=== PATIENT | male | born 1960 | race American Indian/Alaskan Native ===

== ENCOUNTER 2018-11-24 21:28 | Emergency (ER) | payer BC, OTHER ==
[2018-11-24] MEDS ORDERED: Sodium Chloride 0.9% 10 ML Syringe FLUSH PRN (21:53)
[2018-11-24] MEDS ORDERED: Sodium Chloride 0.9% 2.5 ML Syringe FLUSH PRN (21:53)
[2018-11-24] MEDS ORDERED: Ketorolac 30 MG/ML SDV IVPUSH ONE (21:54)
[2018-11-24] MEDS ORDERED: Pantoprazole 40 MG Vial IVPUSH ONE (21:54)
[2018-11-24] MEDS ORDERED: Sodium Chloride 0.9% 1,000 ML IV ONE (21:54)
[2018-11-24] MEDS ORDERED: Morphine 2 MG/ML Syringe IVPUSH ONE (21:54)
[2018-11-24] MEDS ORDERED: Ondansetron 4 MG/2 ML SDV IVPUSH ONE (21:54)
--- NOTE | 2018-11-24 21:58 | EDM.PDOC ---
ED HPI GENERAL MEDICAL PROBLEM - General Chief Complaint: Back Pain or Injury Stated Complaint: VOMITING AND DIARRHEA Time Seen by Provider: 11/24/18 21:52 - History of Present Illness INITIAL COMMENTS - FREE TEXT/NARRATIVE: HISTORY AND PHYSICAL: History of present illness: The patient is a 58-year-old male who presents with complaints of onset of watery diarrhea multiple times, greater than 10 episodes of small stools, with the stools mixed with blood occasionally and dry heaves. The patient said he went to see his provider at [facility] earlier today for back pain and was given medications and was feeling fine and then at 2:00 he started having his symptoms. He says that he gets gurgling in his stomach he has to go to the bathroom he has a small watery stool and then has dry heaves area he says he has not been able to tolerate any sips of water or food today. He's had no fevers chills or upper respiratory symptoms no flank pain and no urinary symptoms. The patient says that he has had heartburn for the last 1 week and he has been using Tums but he has no epigastric pain. The patient has no GI history and has no history of food intolerances. He's had no abdominal surgical history except a prostatectomy done with the robot and he says that his prostate cancer is in remission. The patient says he is thirsty but he cannot tolerate anything. He's had no new foods other than eating at a [employer] several days ago and no exotic travel. The patient tells me he gets diffuse abdominal pain before his diarrhea and it does not localize right or left. Review of systems: As per history of present illness and below otherwise all systems reviewed and negative. Past medical history: As per history of present illness and as reviewed below otherwise noncontributory. Surgical history: As per history of present illness and as reviewed below otherwise noncontributory. Social history: No reported history of drug or alcohol abuse. Family history: As per history of present illness and as reviewed below otherwise noncontributory. Physical exam: General: Well-developed well-nourished overweight man who is nontoxic and vital signs are noted by me HEENT: Atraumatic, normocephalic, negative for conjunctival pallor or scleral icterus, mucous membranes tacky throat clear, neck supple, nontender, trachea midline. Lungs: Clear to auscultation, breath sounds equal bilaterally, chest nontender. Heart: S1S2, regular rate and rhythm no overt murmurs Abdomen: Soft, nondistended, nontender. Bowel sounds are slightly hyperactive and there is no tympany rebound or guarding on percussion. On palpation I cannot reproduce the pain but he does say that there is a slight diffuse tenderness all over when I palpate. Negative for masses or hepatosplenomegaly. Negative for costovertebral tenderness. Pelvis: Stable nontender. Genitourinary: Deferred. Rectal: Deferred. Extremities: Atraumatic, negative for cords or calf pain. Neurovascular unremarkable. Neuro: Awake, alert, oriented. Cranial nerves II through XII unremarkable. Cerebellum unremarkable. Motor and sensory unremarkable throughout. Exam nonfocal. Diagnostics: CBC CMP amylase lipase EKG INR lactic acid stool for culture H pylori Therapeutics: IV fluids Toradol Zofran morphine Protonix He is feeling much improved here and has not produced any stool so I will cancel that order. I will send him home on clear liquid diet bland food Bentyl and Zofran Impression: Vomiting and diarrhea Definitive disposition and diagnosis as appropriate pending reevaluation and review of above. right upper back Pain Score (Numeric/FACES): 8 - Related Data Allergies Allergy/AdvReac Type Severity Reaction Status Date / Time Penicillins Allergy unknown Verified 11/24/18 21:45 Home Meds: Home Meds Lisinopril 1 tab PO DAILY 06/18/16 [History] Past Medical History HEENT History: Reports: None Cardiovascular History: Reports: Hypertension Respiratory History: Reports: None Gastrointestinal History: Reports: None Psychiatric History: Reports: None Endocrine/Metabolic History: Reports: None Oncologic (Cancer) History: Reports: Prostate - Infectious Disease History Infectious Disease History: Reports: None - Past Surgical History Male Surgical History: Reports: Prostatectomy Social & Family History - Family History Family Medical History: Noncontributory ED ROS GENERAL - Review of Systems Review Of Systems: ROS reveals no pertinent complaints other than HPI. ED EXAM, GENERAL - Physical Exam Exam: See Below (See dictation) Course - Vital Signs Last Recorded V/S: Last Vital Signs Temp 36.6 C 11/24/18 21:30 Pulse 60 11/24/18 21:30 Resp 18 11/24/18 21:30 BP 122/77 11/24/18 21:30 Pulse Ox 96 11/24/18 21:30 - Orders/Labs/Meds Orders: Active Orders 24 hr Category Date Time Status EKG Documentation Completion [RC] STAT Care 11/24/18 21:53 Active CULTURE STOOL + CAMPY+SHIGATOX [RM] Stat Lab 11/24/18 21:54 Ordered Sodium Chloride 0.9% [Saline Flush] Med 11/24/18 21:53 Active 10 ml FLUSH ASDIRECTED PRN Sodium Chloride 0.9% [Saline Flush] Med 11/24/18 21:53 Active 2.5 ml FLUSH ASDIRECTED PRN Saline Lock Insert [OM.PC] Stat Oth 11/24/18 21:53 Ordered Medication Orders Sodium Chloride (Saline Flush) 10 ml FLUSH ASDIRECTED PRN PRN Reason: Keep Vein Open Sodium Chloride (Saline Flush) 2.5 ml FLUSH ASDIRECTED PRN PRN Reason: Keep Vein Open Labs: Laboratory Tests 11/24/18 11/24/18 11/24/18 Range/Units 22:20 22:20 22:20 WBC 13.01 H (4.0-11.0) K/uL RBC 5.00 (4.50-5.90) M/uL Hgb 15.9 (13.0-17.0) g/dL Hct 45.9 (38.0-50.0) % MCV 91.8 (80.0-98.0) fL MCH 31.8 (27.0-32.0) pg MCHC 34.6 (31.0-37.0) g/dL RDW Std Deviation 43.2 (28.0-62.0) fl RDW Coeff of Konrad 13 (11.0-15.0) % Plt Count 233 (150-400) K/uL MPV 10.40 (7.40-12.00) fL Neut % (Auto) 88.2 H (48.0-80.0) % Lymph % (Auto) 6.3 L (16.0-40.0) % Bates % (Auto) 5.2 (0.0-15.0) % Eos % (Auto) 0.2 (0.0-7.0) % Baso % (Auto) 0.1 (0.0-1.5) % Neut # (Auto) 11.5 H (1.4-5.7) K/uL Lymph # (Auto) 0.8 (0.6-2.4) K/uL Bates # (Auto) 0.7 (0.0-0.8) K/uL Eos # (Auto) 0.0 (0.0-0.7) K/uL Baso # (Auto) 0.0 (0.0-0.1) K/uL Nucleated RBC % 0.0 /100WBC Nucleated RBCs # 0 K/uL INR 1.05 Lactate 1.6 (0.20-2.00) mmol/L Sodium (136-148) mmol/L Potassium (3.5-5.1) mmol/L Chloride (98-107) mmol/L Carbon Dioxide (21.0-32.0) mmol/L BUN (7.0-18.0) mg/dL Creatinine (0.8-1.3) mg/dL Est Cr Clr Drug Dosing mL/min Estimated GFR (MDRD) ml/min Glucose (74-106) mg/dL Calcium (8.5-10.1) mg/dL Total Bilirubin (0.2-1.0) mg/dL AST (15-37) IU/L ALT (14-63) IU/L Alkaline Phosphatase (46-116) U/L Total Protein (6.4-8.2) g/dL Albumin (3.4-5.0) g/dL Globulin (2.6-4.0) g/dL Albumin/Globulin Ratio (0.9-1.6) Amylase (25-115) U/L Lipase (73-393) U/L H. pylori IgG Antibody (NEG) 11/24/18 11/24/18 Range/Units 22:20 22:20 WBC (4.0-11.0) K/uL RBC (4.50-5.90) M/uL Hgb (13.0-17.0) g/dL Hct (38.0-50.0) % MCV (80.0-98.0) fL MCH (27.0-32.0) pg MCHC (31.0-37.0) g/dL RDW Std Deviation (28.0-62.0) fl RDW Coeff of Konrad (11.0-15.0) % Plt Count (150-400) K/uL MPV (7.40-12.00) fL Neut % (Auto) (48.0-80.0) % Lymph % (Auto) (16.0-40.0) % Bates % (Auto) (0.0-15.0) % Eos % (Auto) (0.0-7.0) % Baso % (Auto) (0.0-1.5) % Neut # (Auto) (1.4-5.7) K/uL Lymph # (Auto) (0.6-2.4) K/uL Bates # (Auto) (0.0-0.8) K/uL Eos # (Auto) (0.0-0.7) K/uL Baso # (Auto) (0.0-0.1) K/uL Nucleated RBC % /100WBC Nucleated RBCs # K/uL INR Lactate (0.20-2.00) mmol/L Sodium 136 (136-148) mmol/L Potassium 4.3 (3.5-5.1) mmol/L Chloride 103 (98-107) mmol/L Carbon Dioxide 23.8 (21.0-32.0) mmol/L BUN 20 H (7.0-18.0) mg/dL Creatinine 1.0 (0.8-1.3) mg/dL Est Cr Clr Drug Dosing 70.90 mL/min Estimated GFR (MDRD) > 60.0 ml/min Glucose 167 H (74-106) mg/dL Calcium 9.1 (8.5-10.1) mg/dL Total Bilirubin 0.3 (0.2-1.0) mg/dL AST 13 L (15-37) IU/L ALT 27 (14-63) IU/L Alkaline Phosphatase 78 (46-116) U/L Total Protein 7.8 (6.4-8.2) g/dL Albumin 3.7 (3.4-5.0) g/dL Globulin 4.1 H (2.6-4.0) g/dL Albumin/Globulin Ratio 0.9 (0.9-1.6) Amylase 44 (25-115) U/L Lipase 99 (73-393) U/L H. pylori IgG Antibody NEGATIVE (NEG) Meds: Medications Generic Name Dose Route Start Last Admin Trade Name Praveen PRN Reason Stop Dose Admin Sodium Chloride 10 ml 11/24/18 21:53 Saline Flush FLUSH ASDIRECTED PRN Keep Vein Open Sodium Chloride 2.5 ml 11/24/18 21:53 Saline Flush FLUSH ASDIRECTED PRN Keep Vein Open Discontinued Medications Generic Name Dose Route Start Last Admin Trade Name Praveen PRN Reason Stop Dose Admin Sodium Chloride 1,000 mls @ 999 mls/hr 11/24/18 21:54 11/24/18 22:24 Normal Saline IV 11/24/18 22:54 999 mls/hr STAT ONE Administration Ketorolac Tromethamine 30 mg 11/24/18 21:54 11/24/18 22:24 Toradol IVPUSH 11/24/18 21:55 30 mg ONETIME ONE Administration Morphine Sulfate 4 mg 11/24/18 21:54 11/24/18 22:24 Morphine IVPUSH 11/24/18 21:55 4 mg ONETIME ONE Administration Morphine Sulfate Confirm 11/24/18 22:26 11/24/18 22:31 Morphine Administered 11/24/18 22:27 Not Given Dose 2 mg .ROUTE .STK-MED ONE Ondansetron HCl 4 mg 11/24/18 21:54 11/24/18 22:24 Zofran IVPUSH 11/24/18 21:55 4 mg ONETIME ONE Administration Pantoprazole Sodium 80 mg 11/24/18 21:54 11/24/18 22:25 Protonix Iv IVPUSH 11/24/18 21:55 80 mg .BOLUS ONE Administration Departure - Departure Time of Disposition: 23:52 Disposition: Home, Self-Care 01 Condition: Good Clinical Impression: Vomiting and diarrhea - Discharge Information Referrals: PCP,None [Primary Care Provider] - Forms: ED Department Discharge Additional Instructions: The following information is given to patients seen in the emergency department who are being discharged to home. This information is to outline your options for follow-up care. We provide all patients seen in our emergency department with a follow-up referral. The need for follow-up, as well as the timing and circumstances, are variable depending upon the specifics of your emergency department visit. If you don't have a primary care physician on staff, we will provide you with a referral. We always advise you to contact your personal physician following an emergency department visit to inform them of the circumstance of the visit and for follow-up with them and/or the need for any referrals to a consulting specialist. The emergency department will also refer you to a specialist when appropriate. This referral assures that you have the opportunity for followup care with a specialist. All of these measure are taken in an effort to provide you with optimal care, which includes your followup. Under all circumstances we always encourage you to contact your private physician who remains a resource for coordinating your care. When calling for followup care, please make the office aware that this follow-up is from your recent emergency room visit. If for any reason you are refused follow-up, please contact the [facility] emergency department at and ask to speak to the emergency department charge nurse. [facility] Primary care- Internal Medicine and Family [address] [address] Please call and follow-up with your provider in your clinic one of ours for reevaluation and further care. Push sips of clear liquids and bland foods. Use medications as prescribed, Zofran and Bentyl dicyclomine as needed and prescribed. Return to ER as needed and as discussed - My Orders Last 24 Hours: My Active Orders 11/24/18 21:53 EKG Documentation Completion [RC] STAT Sodium Chloride 0.9% [Saline Flush] 10 ml FLUSH ASDIRECTED PRN Sodium Chloride 0.9% [Saline Flush] 2.5 ml FLUSH ASDIRECTED PRN Saline Lock Insert [OM.PC] Stat 11/24/18 21:54 CULTURE STOOL + CAMPY+SHIGATOX [RM] Stat - Assessment/Plan Last 24 Hours: My Active Orders 11/24/18 21:53 EKG Documentation Completion [RC] STAT Sodium Chloride 0.9% [Saline Flush] 10 ml FLUSH ASDIRECTED PRN Sodium Chloride 0.9% [Saline Flush] 2.5 ml FLUSH ASDIRECTED PRN Saline Lock Insert [OM.PC] Stat 11/24/18 21:54 CULTURE STOOL + CAMPY+SHIGATOX [RM] Stat
[2018-11-24] MEDS ORDERED: Morphine 2 MG/ML Syringe ONE (22:26)
[2018-11-24 22:48] LABS: CHLORIDE,CL 103 mmol/L (98-107); SODIUM,NA 136 mmol/L (136-148)
[2018-11-24 23:57] VITALS: BP 121/71
== END 2018-11-25 00:05 | disposition home or self-care (01) ==
LOC: MW.ED 21:28
DX: R19.7 Diarrhea, unspecified (principal); R11.10 Vomiting, unspecified; M54.6 Pain in thoracic spine; I10 Essential (primary) hypertension; Z88.0 Allergy status to penicillin; Z79.899 Other long term (current) drug therapy
CPT/HCPCS: 36415; 80053; 82150; 83605; 83690; 85025; 85610; 86677; 93005; 96361; 96374; 96375; 99284; C9113; J1885; J2270; J2405; J7040

== ENCOUNTER 2020-12-30 09:38 | Day surgery (SDC) | payer BC, OTHER ==
[~2020-12-30 09:38] MED LIST: Ketamine 500 mg/10 ML MDV ONE; Lactated Ringers 1,000 ML IV SCH; Lidocaine 2% 5 ML SDV ONE; Midazolam 1 MG/ML 2 ML SDV ONE; Propofol 200 MG/20 ML SDV ONE; fentaNYL 250 MCG/5 ML SDV ONE
[2020-12-30] MEDS ORDERED: fentaNYL 100 MCG/2 ML SDV ONE (09:47)
--- NOTE | 2020-12-30 10:04 | PCM.PREANE ---
Preanesthetic Assessment - Anesthesia/Transfusion/Family Hx Anesthesia History: Prior Anesthesia Without Reaction Family History of Anesthesia Reaction: No Transfusion History: No Prior Transfusion(s) Intubation History: Unknown - Review of Systems General: No Symptoms Pulmonary: No Symptoms Cardiovascular: No Symptoms Gastrointestinal: Hematochezia Neurological: No Symptoms Other: Reports: None - Physical Assessment Vital Signs: Last Vital Signs Temp 36.8 C 12/30/20 09:56 Pulse 65 12/30/20 09:56 Resp 16 12/30/20 09:56 BP 145/77 H 12/30/20 09:56 Pulse Ox 96 12/30/20 09:56 Height: 5 ft 6 in Weight: 106.594 kg ASA Class: 2 Mental Status: Alert & Oriented x3 Airway Class: Mallampati = 2 Dentition: Reports: Dentures (upper), Partial (lower, 4 teeth left in lower jaw) Thyro-Mental Finger Breadths: 3 Mouth Opening Finger Breadths: 2 (very small mouth) ROM/Head Extension: Full Lungs: Clear to Auscultation, Normal Respiratory Effort Cardiovascular: Regular Rate, Regular Rhythm - Allergies Allergies/Adverse Reactions: Allergies Allergy/AdvReac Type Severity Reaction Status Date / Time bee venom protein (honey bee) Allergy Swelling Verified 12/28/20 10:45 Penicillins Allergy Rash Verified 12/28/20 10:45 - Blood Blood Available: No - Anesthesia Plan Pre-Op Medication Ordered: None - Acknowledgements Anesthesia Type Planned: MAC Pt an Appropriate Candidate for the Planned Anesthesia: Yes Alternatives and Risks of Anesthesia Discussed w Pt/Guardian: Yes Pt/Guardian Understands and Agrees with Anesthesia Plan: Yes PreAnesthesia Questionnaire HEENT History: Reports: Other (See Below) Other HEENT History: wears glasses, top and bottom dentures Cardiovascular History: Reports: Blood Clots/VTE/DVT, Hypertension Other Cardiovascular History: DVT left leg 9 years ago after prostate surgery Respiratory History: Reports: None Gastrointestinal History: Reports: Colon Polyp, Other (See Below) Other Gastrointestinal History: states hepatitis as a child Genitourinary History: Reports: Prostate Disorder Musculoskeletal History: Reports: Fracture Other Musculoskeletal History: hx fx wrist and ankle Neurological History: Reports: None Psychiatric History: Reports: None Endocrine/Metabolic History: Reports: Obesity/BMI 30+ (BMI 37.9) Hematologic History: Reports: None Immunologic History: Reports: None Oncologic (Cancer) History: Reports: Prostate (9 years ago) Dermatologic History: Reports: None - Infectious Disease History Infectious Disease History: Reports: None - Past Surgical History Head Surgeries/Procedures: Reports: None HEENT Surgical History: Reports: None Cardiovascular Surgical History: Reports: None Respiratory Surgical History: Reports: None GI Surgical History: Reports: Colonoscopy (9 years ago- normal) Other Female Surgeries/Procedures: robotic prostatectomy 9 years ago Male Surgical History: Reports: Prostatectomy Endocrine Surgical History: Reports: None Neurological Surgical History: Reports: None Musculoskeletal Surgical History: Reports: None Other Oncologic Surgeries/Procedures: prostatectomy Dermatological Surgical History: Reports: None - SUBSTANCE USE Tobacco Use Status *Q: Former Tobacco User Tobacco Use Within Last Twelve Months: No - HOME MEDS Home Medications: Home Meds Lansoprazole [Prevacid] 30 mg PO DAILY 12/28/20 [History] Telmisartan 40 mg PO DAILY 12/28/20 [History] - CURRENT (IN HOUSE) MEDS Current Meds: Current Medications Lactated Ringer's (Ringers, Lactated) 1,000 mls @ 125 mls/hr IV ASDIRECTED BRANDON Discontinued Medications Fentanyl (Sublimaze) Confirm Administered Dose 250 mcg .ROUTE .STK-MED ONE Stop: 12/30/20 07:28 Fentanyl (Sublimaze) Confirm Administered Dose 100 mcg .ROUTE .STK-MED ONE Stop: 12/30/20 09:48 Ketamine HCl (Ketalar) Confirm Administered Dose 500 mg .ROUTE .STK-MED ONE Stop: 12/30/20 07:28 Lidocaine (Xylocaine-Mpf 2%) Confirm Administered Dose 5 ml .ROUTE .STK-MED ONE Stop: 12/30/20 07:28 Midazolam HCl (Versed 1 Mg/Ml) Confirm Administered Dose 2 mg .ROUTE .STK-MED ONE Stop: 12/30/20 07:28 Propofol (Diprivan 20 Ml) Confirm Administered Dose 200 mg .ROUTE .STK-MED ONE Stop: 12/30/20 07:28 Propofol (Diprivan 20 Ml) Confirm Administered Dose 200 mg .ROUTE .STK-MED ONE Stop: 12/30/20 07:31
[2020-12-30] MEDS ORDERED: Glycopyrrolate 0.2 MG/ML SDV ONE ×3 (11:30→11:33)
--- NOTE | 2020-12-30 11:59 | PCM.OPNOTE ---
- General Post-Op/Procedure Note Date of Surgery/Procedure: 12/30/20 Operative Procedure(s): Colonoscopy with cold, proximal sigmoid colon polypectomy and snare distal sigmoid colon polypectomy. Pre Op Diagnosis: Rectal bleeding. Desire for colorectal cancer screening. Post-Op Diagnosis: Sigmoid colon polyps 2 Anesthesia Technique: MAC (ASA II) Primary Surgeon: Lon Zuñiga Instructor Business Education: Rossana Dominguez Condition: Good Free Text/Narrative:: DICTATION [id number] CPT CODE 02317
[2020-12-30] MEDS ORDERED: Lactated Ringers 1,000 ML IV SCH (12:00)
--- NOTE | 2020-12-30 12:29 | PCM48HPAN ---
Post Anesthesia Note - EVALUATION WITHIN 48HRS OF ANESTHETIC Vital Signs in Normal Range: Yes Patient Participated in Evaluation: Yes Respiratory Function Stable: Yes Airway Patent: Yes Cardiovascular Function Stable: Yes Hydration Status Stable: Yes Pain Control Satisfactory: Yes Nausea and Vomiting Control Satisfactory: Yes Mental Status Recovered: Yes Vital Signs: Last Vital Signs Temp 36.8 C 12/30/20 09:56 Pulse 87 12/30/20 12:06 Resp 17 12/30/20 12:06 BP 98/63 12/30/20 12:06 Pulse Ox 95 12/30/20 12:06 - COMMENTS/OBSERVATIONS Free Text/Narrative:: No anesthesia problems
--- NOTE | 2020-12-30 12:29 | PCM.POSTAN ---
POST ANESTHESIA ASSESSMENT - MENTAL STATUS Mental Status: Alert, Oriented - VITAL SIGNS Vital Signs: Last Vital Signs Temp 36.8 C 12/30/20 09:56 Pulse 87 12/30/20 12:06 Resp 17 12/30/20 12:06 BP 98/63 12/30/20 12:06 Pulse Ox 95 12/30/20 12:06 - RESPIRATORY Respiratory Status: Respiratory Rate WNL, Airway Patent, O2 Saturation Stable - CARDIOVASCULAR CV Status: Pulse Rate WNL, Blood Pressure Stable - GASTROINTESTINAL GI Status: No Symptoms - PAIN Pain Score: 0 - POST OP HYDRATION Hydration Status: Adequate & Stable - OBSERVATIONS Free Text/Narrative:: No anesthesia problems
[2020-12-30 12:52] VITALS: BP 117/57; PULSE 85
--- NOTE | 2020-12-30 13:39 | OR ---
SURGEON: Lon Zuñiga M.D. DATE OF PROCEDURE: 12/30/2020 OPERATION PERFORMED: Colonoscopy with cold proximal sigmoid polypectomy and distal snare sigmoid polypectomy. PRIMARY SURGEON: Lon Zuñiga MD PROGRAM REVIEW DIRECTOR: Chain Person: STACY Saldaña student. ANESTHESIA: MAC. ASA CLASSIFICATION: II. PREOPERATIVE DIAGNOSES: 1. Desire for colorectal cancer screening. 2. Rectal bleeding. POSTOPERATIVE DIAGNOSIS: Sigmoid polyps x2. DESCRIPTION OF PROCEDURE: The patient was taken to the endoscopy room and positioned on the endoscopy table in the left lateral decubitus position. Time-out was called for appropriate identification of the patient and procedure. Monitored anesthesia care was provided. The colonoscope was inserted into the rectum and advanced with minimal difficulty to the cecum where the colonoscope was retroflexed to visualize the ascending colon from below. The colonoscope was then straightened and slowly withdrawn. The cecum, ascending colon, hepatic flexure, transverse colon, splenic flexure, and descending colon showed no tumors, polyps, diverticula, or angiodysplastic changes. One small polyp was encountered in the proximal sigmoid colon and this was removed with the cold biopsy forceps. A second polyp was encountered in the distal sigmoid colon at approximately 32 cm from the anal orifice. This was removed with the snare electrocautery and recovered. The colonoscope was then withdrawn to the rectum and retroflexed to visualize the anal orifice from above. No tumors, polyps, or acute hemorrhoidal changes were noted. The colonoscope was then straightened, the rectum aspirated, and the colonoscope removed. The patient tolerated the procedure well and was taken to recovery room in stable condition. DAVID / GEOVANI /[id number]
== END 2020-12-30 12:39 | disposition home or self-care (01) ==
LOC: MW.SDS 09:38
PROVIDERS: ATTEND Surgery
DX: D12.5 Benign neoplasm of sigmoid colon (principal); I10 Essential (primary) hypertension; E66.9 Obesity, unspecified; Z88.0 Allergy status to penicillin; Z91.030 Bee allergy status; Z98.890 Other specified postprocedural states; Z79.899 Other long term (current) drug therapy; Z85.46 Personal history of malignant neoplasm of prostate; Z80.0 Family history of malignant neoplasm of digestive organs; Z68.37 Body mass index [BMI] 37.0-37.9, adult; Z87.891 Personal history of nicotine dependence
CPT/HCPCS: 45380; 45385; J2250; J2704; J3010; J3490; J7120; 00812; 88305

== ENCOUNTER 2023-01-09 06:13 | Day surgery (SDC) | payer OTHER ==
[~2023-01-09 06:13] MED LIST changes: -Ketamine 500 mg/10 ML MDV ONE; -Lidocaine 2% 5 ML SDV ONE; -Midazolam 1 MG/ML 2 ML SDV ONE; -Propofol 200 MG/20 ML SDV ONE; -fentaNYL 250 MCG/5 ML SDV ONE
[2023-01-09] MEDS ORDERED: Lidocaine 2% 5 ML SDV ONE (07:21)
[2023-01-09] MEDS ORDERED: Propofol 200 MG/20 ML SDV ONE ×2 (07:21→09:11)
[2023-01-09] MEDS ORDERED: fentaNYL 100 MCG/2 ML SDV ONE (07:21)
[2023-01-09] MEDS ORDERED: ePHEDrine 50 MG/ML SDV ONE (09:10)
[2023-01-09 09:57] VITALS: BP 139/72; PULSE 70
== END 2023-01-09 10:05 | disposition home or self-care (01) ==
LOC: MW.SDS 06:13
PROVIDERS: ATTEND Surgery
DX: Z12.11 Encounter for screening for malignant neoplasm of colon (principal); I10 Essential (primary) hypertension; K21.9 Gastro-esophageal reflux disease without esophagitis; E66.9 Obesity, unspecified; G89.29 Other chronic pain; M54.9 Dorsalgia, unspecified; E11.9 Type 2 diabetes mellitus without complications; Z98.890 Other specified postprocedural states; Z86.010 Personal history of colon polyps; Z88.0 Allergy status to penicillin; Z79.899 Other long term (current) drug therapy; Z87.891 Personal history of nicotine dependence; Z79.84 Long term (current) use of oral hypoglycemic drugs
CPT/HCPCS: 45378; J2704; J3010; J7120; J3490

== ENCOUNTER 2023-07-02 16:32 | Emergency (ER) | payer OTHER ==
[2023-07-02] MEDS ORDERED: methylPREDNISolone Sodium Succinate 125 MG/2 ML SDV IVPUSH ONE (16:42)
[2023-07-02] MEDS ORDERED: diphenhydrAMINE 50 MG/ML SDV IVPUSH ONE (16:43)
[2023-07-02 19:12] VITALS: BP 130/69; PULSE 75
== END 2023-07-02 18:10 | disposition home or self-care (01) ==
LOC: MW.ED 16:32
DX: T63.441A Toxic effect of venom of bees, accidental (unintentional), initial encounter (principal); E66.9 Obesity, unspecified; Z91.030 Bee allergy status; Z88.0 Allergy status to penicillin; Z68.36 Body mass index [BMI] 36.0-36.9, adult
CPT/HCPCS: 96374; 96375; 99282; J1200; J2930; 99284

== ENCOUNTER 2023-07-31 16:55 | Emergency (ER) | payer OTHER ==
[2023-07-31] MEDS ORDERED: Famotidine 20 MG/2 ML SDV IVPUSH ONE (17:22)
[2023-07-31] MEDS ORDERED: Sodium Chloride 0.9% 2.5 ML Syringe FLUSH PRN (17:22)
[2023-07-31] MEDS ORDERED: Sodium Chloride 0.9% 1,000 ML IV ONE (17:22)
[2023-07-31] MEDS ORDERED: diphenhydrAMINE 50 MG/ML SDV IVPUSH ONE (17:22)
[2023-07-31] MEDS ORDERED: Sodium Chloride 0.9% 10 ML Syringe FLUSH PRN (17:22)
[2023-07-31 18:10] LABS: BASOPHILS PERCENT AUTO 0.4 % (0.0-1.5); EOSINOPHILS ABSOLUTE AUTO 0.2 K/uL (0.0-0.7); EOSINOPHILS PERCENT AUTO 2.8 % (0.0-7.0); HEMATOCRIT 41.5 % (38.0-50.0); HEMOGLOBIN 14.3 g/dL (13.0-17.0); LYMPHOCYTES ABSOLUTE AUTO 1.5 K/uL (0.6-2.4); LYMPHOCYTES PERCENT AUTO 20.8 % (16.0-40.0); MEAN CORPUSCULAR HEMOGLOBIN 31.6 pg (27.0-32.0); MEAN CORPUSCULAR HGB CONC 34.5 g/dL (31.0-37.0); MEAN CORPUSCULAR VOLUME 91.6 fL (80.0-98.0); MONOCYTES ABSOLUTE AUTO 0.9 K/uL (0.0-0.8); MONOCYTES PERCENT AUTO 11.7 % (0.0-15.0); NEUTROPHILS ABSOLUTE AUTO 4.7 K/uL (1.4-5.7); NEUTROPHILS PERCENT AUTO 64.3 % (48.0-80.0); NRBC ABSOLUTE 0 K/uL; PLATELET COUNT,PLT 261 K/uL (150-400); RED BLOOD CELL COUNT 4.53 M/uL (4.50-5.90); WHITE BLOOD CELL COUNT,WBC 7.37 K/uL (4.0-11.0)
[2023-07-31 18:42] LABS: ALANINE AMINOTRANSFERASE,ALT 33 IU/L (14-63); ALBUMIN 3.9 g/dL (3.4-5.0); ALKALINE PHOSPHATASE 92 U/L (46-116); ASPARTATE AMNIOTRANSFERASE,AST 18 IU/L (15-37); BILIRUBIN TOTAL 0.6 mg/dL (0.2-1.0); BLOOD UREA NITROGEN,BUN 31 mg/dL (7.0-18.0); CALCIUM 8.9 mg/dL (8.5-10.1); CARBON DIOXIDE,CO2 23.8 mmol/L (21.0-32.0); CHLORIDE,CL 104 mmol/L (98-107); EST CRCL DRUG DOSING (CG) 67.48 mL/min; GLUCOSE RANDOM 117 mg/dL (74-106); LIPASE 25 U/L (16-77); POTASSIUM,K 3.9 mmol/L (3.5-5.1); PROTEIN TOTAL,TP 7.8 g/dL (6.4-8.2); SODIUM,NA 140 mmol/L (136-148)
[2023-07-31 18:48] LABS: ESTIMATED GFR 86 mL/min (>60)
[2023-07-31] MEDS ORDERED: Dexamethasone 10 MG/ML SDV IVPUSH ONE (19:03)
[2023-07-31 19:33] VITALS: BP 152/79; PULSE 55
== END 2023-07-31 19:32 | disposition home or self-care (01) ==
LOC: MW.ED 16:55
DX: T63.441A Toxic effect of venom of bees, accidental (unintentional), initial encounter (principal); R53.81 Other malaise; I10 Essential (primary) hypertension; E66.9 Obesity, unspecified; Z68.36 Body mass index [BMI] 36.0-36.9, adult; Z91.030 Bee allergy status; Z88.0 Allergy status to penicillin
CPT/HCPCS: 36415; 80053; 82947; 83690; 84484; 85025; 96374; 96375; 99283; J1100; J1200; J3490; J7030; 93005; 93010; 99284

== ENCOUNTER 2025-09-29 12:01 | Inpatient (IN) | payer OTHER ==
[2025-09-29] MEDS ORDERED: Sodium Chloride 0.9% 10 ML Syringe FLUSH PRN ×2 (12:07→15:37)
[2025-09-29] MEDS ORDERED: Sodium Chloride 0.9% 2.5 ML Syringe FLUSH PRN ×2 (12:07→15:37)
[2025-09-29 12:22] LABS: APPEARANCE,URINE CLEAR; GLUCOSE,URINE >=1000 mg/dL (NEGATIVE); OCCULT BLOOD,URINE NEGATIVE (NEGATIVE)
[2025-09-29 12:32] LABS: AMPHETAMINES SCREEN, URINE NEGATIVE (CUTOFF=500); BUPRENORPHINE SCREEN,URINE NEGATIVE (CUTOFF=10); METHADONE SCREEN, URINE NEGATIVE (CUTOFF=200); METHAMPHETAMINES SCREEN, URINE NEGATIVE (CUTOFF=500); OXYCODONE SCREEN,URINE NEGATIVE (CUT0FF=100); PCP SCREEN,URINE NEGATIVE (CUTOFF=25); THC SCREEN,URINE 20 NG/ML NEGATIVE (CUTOFF=50)
[2025-09-29 12:40] LABS: MEAN PLATELET VOLUME 9.6 fL (9.4-12.4); NRBC ABSOLUTE 0.00 K/uL (0.00-0.02); NRBC PERCENT 0.0 /100WBC (0.0-0.2); PLATELET COUNT,PLT 222 K/uL (150-400); RED BLOOD CELL COUNT 5.38 M/uL (4.52-5.90); WHITE BLOOD CELL COUNT,WBC 14.36 K/uL (3.9-11.3)
[2025-09-29] MEDS: Alum Hydrox/Mag Hydrox/Simeth 15 ML, Metoclopramide 5 MG, Lidocaine 2% 5 ML PO ONE (12:45)
[2025-09-29] MEDS: Pantoprazole 40 MG in Sodium Chloride 0.9% 10 ML IVPUSH ONE (12:46)
[2025-09-29 12:58] LABS: INR 1.02 (0.86-1.11); PTT,PARTIAL THROMBOPLSTIN TIME 23.1 SEC (23.9-30.7)
[2025-09-29 13:11] LABS: BAND ABSOLUTE MAN 0.14; BAND PERCENT MAN 1 %; EOSINOPHILS ABSOLUTE MAN 0.14 K/uL (0.00-0.45); EOSINOPHILS PERCENT MAN 1 % (0-6); LYMPHOCYTES ABSOLUTE MAN 1.44 K/uL (1.00-4.80); LYMPHOCYTES PERCENT MAN 10 % (24-44); MONOCYTES ABSOLUTE MAN 2.15 K/uL (0.00-0.80); MONOCYTES PERCENT MAN 15 % (0-8); SEG NEUTROPHILS ABSOLUTE MAN 10.48 K/uL (1.80-7.70); SEG NEUTROPHILS PERCENT MAN 73 % (41-71)
[2025-09-29 13:30] LABS: A/G RATIO 1.1 (0.9-1.6); ALANINE AMINOTRANSFERASE,ALT 22 IU/L (14-63); ASPARTATE AMNIOTRANSFERASE,AST 16 IU/L (15-37); BILIRUBIN TOTAL 0.7 mg/dL (0.2-1.0); BLOOD UREA NITROGEN,BUN 26 mg/dL (7.0-18.0); CARBON DIOXIDE,CO2 28.2 mmol/L (21.0-32.0); CHLORIDE,CL 104 mmol/L (98-107); CHOLESTEROL HDL 50 mg/dL (40-60); CHOLESTEROL LDL CALCULATED 128 mg/dL (60-180); CHOLESTEROL TOTAL 212 mg/dL (50-200); CREATININE 1.5 mg/dL (0.8-1.3); EST CRCL DRUG DOSING (CG) 44.90 mL/min; ETHANOL BLOOD MEDICAL <3 mg/dL; GLUCOSE RANDOM 169 mg/dL (74-106); POTASSIUM,K 4.4 mmol/L (3.5-5.1); PRO B-TYPE NATRIUR PEPT,BNPPRO 337 pg/mL (0-125); PROTEIN TOTAL,TP 7.7 g/dL (6.4-8.2); SODIUM,NA 140 mmol/L (136-148); TSH ULTRASENSITIVE 1.58 uIU/mL (0.36-3.74); VLDL CHOLESTEROL 34 mg/dL (5-55)
[2025-09-29 13:31] LABS: ESTIMATED GFR 52 mL/min (>60)
[2025-09-29] MEDS: Iopamidol 755 MG/ML 500 ML Multipack Bottle IVPUSH STA (13:43)
[2025-09-29] MEDS ORDERED: cefTRIAXone 2 GM in Water For Injection, Sterile 20 ML IVPUSH ONE (14:47)
[2025-09-29] MEDS ORDERED: Ondansetron 4 MG/2 ML SDV IVPUSH PRN (15:37)
[2025-09-29] MEDS ORDERED: Ondansetron 4 MG Tab.DIS PO PRN (15:37)
[2025-09-29] MEDS ORDERED: 50% Dextrose in Water 50 ML Syringe IVPUSH PRN (16:00)
[2025-09-29] MEDS: cefTRIAXone 2 GM in Water For Injection, Sterile 20 ML IVPUSH ONE (16:44)
[2025-09-29] MEDS: cefTRIAXone 1 GM in Water For Injection, Sterile 10 ML IVPUSH SCH (17:46)
[2025-09-30 06:03] LABS: BASOPHILS ABSOLUTE AUTO 0.06 K/uL (0.00-0.20); BASOPHILS PERCENT AUTO 0.5 % (0.0-1.0); EOSINOPHILS ABSOLUTE AUTO 0.29 K/uL (0.00-0.45); EOSINOPHILS PERCENT AUTO 2.6 % (0.0-6.0); IMMATURE GRAN ABSOLUTE AUTO 0.06 K/uL (0.00-0.05); IMMATURE GRAN PERCENT AUTO 0.5 % (0.0-0.4); LYMPHOCYTES ABSOLUTE AUTO 2.02 K/uL (1.00-4.80); LYMPHOCYTES PERCENT AUTO 18.1 % (24.0-44.0); MEAN PLATELET VOLUME 9.8 fL (9.4-12.4); MONOCYTES ABSOLUTE AUTO 1.31 K/uL (0.00-0.80); MONOCYTES PERCENT AUTO 11.7 % (0.0-8.0); NEUTROPHILS ABSOLUTE AUTO 7.41 K/uL (1.80-7.70); NEUTROPHILS PERCENT AUTO 66.6 % (41.0-71.0); NRBC ABSOLUTE 0.00 K/uL (0.00-0.02); NRBC PERCENT 0.0 /100WBC (0.0-0.2); PLATELET COUNT,PLT 204 K/uL (150-400); RED BLOOD CELL COUNT 4.93 M/uL (4.52-5.90); WHITE BLOOD CELL COUNT,WBC 11.15 K/uL (3.9-11.3)
[2025-09-30 06:32] LABS: A/G RATIO 0.9 (0.9-1.6); ALANINE AMINOTRANSFERASE,ALT 19.0 IU/L (14-63); ASPARTATE AMNIOTRANSFERASE,AST 14.0 IU/L (15-37); BILIRUBIN TOTAL 0.5 mg/dL (0.2-1.0); BLOOD UREA NITROGEN,BUN 28.0 mg/dL (7.0-18.0); CARBON DIOXIDE,CO2 31.9 mmol/L (21.0-32.0); CHLORIDE,CL 103.0 mmol/L (98-107); CREATININE 1.2 mg/dL (0.8-1.3); EST CRCL DRUG DOSING (CG) 56.12 mL/min; GLUCOSE RANDOM 125.0 mg/dL (74-106); PHOSPHORUS 4.1 mg/dL (2.6-4.7); POTASSIUM,K 4.2 mmol/L (3.5-5.1); PROTEIN TOTAL,TP 6.6 g/dL (6.4-8.2); SODIUM,NA 140.0 mmol/L (136-148)
[2025-09-30 06:33] LABS: ESTIMATED GFR 68.0 mL/min (>60)
[2025-09-30 11:36] VITALS: BP 168/75; PULSE 54
[2025-09-30] MEDS ORDERED: cefTRIAXone 1 GM in Water For Injection, Sterile 10 ML IVPUSH SCH (17:00)
== END 2025-09-30 17:05 | disposition home or self-care (01) | DRG 194 ==
LOC: MW.ED 12:01 → MW.MS 15:16 → OBSVTOIN 09-30 10:25 → MW.MS 09-30 11:34
PROVIDERS: ADMIT Internal Medicine; ATTEND Internal Medicine
DX: J18.9 Pneumonia, unspecified organism (principal); R07.9 Chest pain, unspecified; I95.9 Hypotension, unspecified; R55 Syncope and collapse; N17.9 Acute kidney failure, unspecified; R14.0 Abdominal distension (gaseous); R79.89 Other specified abnormal findings of blood chemistry; Z68.45 Body mass index [BMI] 70 or greater, adult; Z82.49 Family history of ischemic heart disease and other diseases of the circulatory system; G89.29 Other chronic pain; E66.9 Obesity, unspecified; E86.0 Dehydration; D72.829 Elevated white blood cell count, unspecified; R00.1 Bradycardia, unspecified; E11.9 Type 2 diabetes mellitus without complications; Z68.35 Body mass index [BMI] 35.0-35.9, adult; I10 Essential (primary) hypertension; M54.2 Cervicalgia; F17.200 Nicotine dependence, unspecified, uncomplicated; K59.00 Constipation, unspecified; N42.9 Disorder of prostate, unspecified; E11.40 Type 2 diabetes mellitus with diabetic neuropathy, unspecified; Z88.0 Allergy status to penicillin; Z91.030 Bee allergy status; Z86.718 Personal history of other venous thrombosis and embolism; Z90.79 Acquired absence of other genital organ(s); Z79.899 Other long term (current) drug therapy; Z85.46 Personal history of malignant neoplasm of prostate
CPT/HCPCS: 36415; 71045; 71045-26; 71275; 71275-26; 74174; 74174-26; 80053; 80061; 80305; 80307; 81003; 82947; 83036; 83605; 83690; 83735; 83880; 84100; 84443; 84484; 85025; 85610; 85652; 85730; 86140; 87040; 93005; 93010; 93306; 96361; 96365; 96366; 96372; 96374; 96375; 99223; 99239; 99285; 99285-25; A4216; A9270-GY; G0378; J0696; J1271; J1650; J2470; J7030; Q9967